=== PATIENT | male | born 1990 | race Hispanic/Latino ===

== ENCOUNTER 2017-09-11 15:14 | Emergency (ER) | payer MEDICAID ==
[2017-09-11 15:27] VITALS: BP 144/86; PULSE 96; RESP 16; TEMP 98.3; O2SAT 96
--- NOTE | 2017-09-11 15:58 | ED PDOC ---
HPI: CCC, URI, Sore Throat Time Seen by Provider: 09/11/17 15:29 Chief Complaint (Nursing): ENT Problem Chief Complaint (Provider): Left ear pain x 3 days History Per: Patient History/Exam Limitations: no limitations Onset/Duration Of Symptoms: Days Current Symptoms Are (Timing): Still Present Location Of Pain: Ear(s) (Left ) Sick Contacts (Context): None Associated Symptoms: denies: Fever, Chills, Sore Throat, Cough, Sputum, Sinus Drainage, Myalgias Ear Symptoms: Left: Ear Pain Severity: Moderate Pain Scale Rating Of: 6 Additional Complaint(s): 26 yo male with no medical problems presents with left ear pain x 3 days. PT has not take anything at home. Pt states the first day it felt itchy and uncomfortable. Denies fever.chills. Past Medical History Reviewed: Historical Data, Nursing Documentation, Vital Signs Vital Signs: Last Vital Signs Temp 98.3 F 09/11/17 15:22 Pulse 96 H 09/11/17 15:22 Resp 16 09/11/17 15:22 BP 144/86 09/11/17 15:22 Pulse Ox 96 09/11/17 15:22 - Medical History PMH: No Chronic Diseases - Family History Family History: States: Unknown Family Hx - Home Medications Home Medications: Ambulatory Orders Medication Instructions Recorded Acetaminophen/Hydrocodone Bi 1 tab PO Q4 PRN #15 tab 08/04/14 [Vicodin 300 mg-5 mg] Cyclobenzaprine HCl [Flexeril] 10 mg PO Q8 #20 tab 08/04/14 Naproxen [Naprosyn] 500 mg PO BID #20 tab 08/04/14 Benzonatate [Tessalon Perles] 100 mg PO TID #30 sgl 05/30/17 Oseltamivir [Tamiflu] 75 mg PO BID #9 cap 05/30/17 Amoxicillin 875 mg PO BID #20 tab 09/11/17 Ciprofloxacin/Dexamethasone 4 drop .ROUTE BID #1 bottle 09/11/17 [Ciprodex 0.3%-0.1% 7.5 Ml] - Allergies Allergies/Adverse Reactions: Allergies Allergy/AdvReac Type Severity Reaction Status Date / Time Sulfa (Sulfonamide Allergy Verified 05/30/17 20:25 Antibiotics) Review of Systems ROS Statement: Except As Marked, All Systems Reviewed And Found Negative Constitutional: Negative for: Fever, Chills ENT: Positive for: Ear Pain Physical Exam - Reviewed Nursing Documentation Reviewed: Yes Vital Signs Reviewed: Yes - Physical Exam Appears: Positive for: Well, Non-toxic, No Acute Distress Head Exam: Positive for: ATRAUMATIC, NORMAL INSPECTION, NORMOCEPHALIC Skin: Positive for: Normal Color, Warm, DRY Eye Exam: Positive for: Normal appearance ENT: Negative for: Normal ENT Inspection ((+) Erythema and edema of the external auditory canal on the left, (+) pinna pull and tragel tu on the left; mild erythema of the left TM), Tonsillar Exudate, Tonsillar Swelling Neck: Positive for: Normal, Painless ROM Respiratory: Negative for: Accessory Muscle Use, Respiratory Distress Back: Positive for: Normal Inspection Extremity: Positive for: Normal ROM Neurologic/Psych: Positive for: Alert, Oriented - ECG O2 Sat by Pulse Oximetry: 96 Medical Decision Making Medical Decision Making: Discussed topical antibiotics drops for 2 days and if symptoms do not improve oral antibiotics. Disposition - Clinical Impression Clinical Impression: Otitis externa - Patient ED Disposition Is Patient to be Admitted: No Counseled Patient/Family Regarding: Diagnosis, Need For Followup, Rx Given - Disposition Disposition: Routine/Home Disposition Time: 15:56 Condition: STABLE Prescriptions: Amoxicillin 875 mg PO BID #20 tab Ciprofloxacin/Dexamethasone [Ciprodex 0.3%-0.1% 7.5 Ml] 4 drop .ROUTE BID #1 bottle Instructions: Outer Ear Infection (DC)
== END 2017-09-11 16:05 | disposition home or self-care (01) ==
LOC: H.ER 15:14
DX: H60.92 Unspecified otitis externa, left ear (principal)

== ENCOUNTER 2018-06-03 17:58 | Emergency (ER) | payer OTHER ==
--- NOTE | 2018-06-03 18:24 | ED PDOC ---
Lower Extremity Pain/Injury Time Seen by Provider: 06/03/18 18:08 Chief Complaint (Nursing): Lower Extremity Problem/Injury Chief Complaint (Provider): Ingrown Toe Nail History Per: Patient History/Exam Limitations: no limitations Onset/Duration Of Symptoms: Days (x6 months) Current Symptoms Are (Timing): Still Present Additional Complaint(s): 27 year old male presents to the ED for evaluation of an ingrown toe nail to his left big toe. He states he has had it for the past six months, but just recently developed associated swelling around the nail, localized pain, and bleeding. Did not take any medications prior to arrival and denies other complaints. Denies fever/chills. Tetanus up to date PMD: none provided Past Medical History Reviewed: Historical Data, Nursing Documentation, Vital Signs Vital Signs: Last Vital Signs Temp 99.4 F 06/03/18 18:05 Pulse 98 H 06/03/18 18:05 Resp 16 06/03/18 18:05 BP 134/83 06/03/18 18:05 Pulse Ox 98 06/03/18 18:05 - Medical History PMH: No Chronic Diseases - Surgical History Surgical History: No Surg Hx - Family History Family History: States: Unknown Family Hx - Social History Current smoker - smoking cessation education provided: No Alcohol: Social - Home Medications Home Medications: Ambulatory Orders Medication Instructions Recorded Acetaminophen/Hydrocodone Bi 1 tab PO Q4 PRN #15 tab 08/04/14 [Vicodin 300 mg-5 mg] Cyclobenzaprine HCl [Flexeril] 10 mg PO Q8 #20 tab 08/04/14 Naproxen [Naprosyn] 500 mg PO BID #20 tab 08/04/14 Benzonatate [Tessalon Perles] 100 mg PO TID #30 sgl 05/30/17 Oseltamivir Cap [Tamiflu] 75 mg PO BID #9 cap 05/30/17 Ciprofloxacin/Dexamethasone 4 drop .ROUTE BID #1 bottle 09/11/17 [Ciprodex 0.3%-0.1% 7.5 Ml] RX: Amoxicillin 875 mg PO BID #20 tab 09/11/17 Cephalexin [cephalexin] 500 mg PO TID #21 cap 06/03/18 RX: Ibuprofen [Motrin Tab] 800 mg PO Q8 PRN #21 tab 06/03/18 - Allergies Allergies/Adverse Reactions: Allergies Allergy/AdvReac Type Severity Reaction Status Date / Time Sulfa (Sulfonamide Allergy RASH Verified 06/03/18 18:05 Antibiotics) Review of Systems ROS Statement: Except As Marked, All Systems Reviewed And Found Negative Musculoskeletal: Positive for: Other (ingrown nail to left foot big toe with localized pain, swelling, and bleeding) Physical Exam - Reviewed Nursing Documentation Reviewed: Yes Vital Signs Reviewed: Yes - Physical Exam Comments: GENERAL APPEARANCE: Patient is awake, alert, oriented x 3, in no acute distress. Resting comfortably SKIN: Warm, dry; (-) cyanosis. NECK: Supple, FROM LEFT FOOT: Medial and distal nail margin of big toe with erythema, fluctuance, and tenderness. Skin overgrowth to medial nail. Capillary refill intact. Remainder of foot: non tender, full ROM. No evidence of cellulitis. CARDIOVASCULAR: regular rate and rhythm RESPIRATORY: lungs cleared to auscultation bilaterally (-) rales (-)rhonchi (-) wheezing NEUROLOGIC: (+) distal sensation. - ECG O2 Sat by Pulse Oximetry: 98 (RA) Pulse Ox Interpretation: Normal Medical Decision Making Medical Decision Making: Initial Impression: infected ingrown toenail Time: 1824 Initial Plan: --Spoke to podiatry resident, Tomy Camarena, who is agreeable to evaluate patient in ED. 1949 Podiatry at bedside. Recommends treatment with Keflex PO. Keflex ordered. 2024 Procedure performed by podiatry. See consult note. Dressing and surgical shoe in place. On re-evaluation, patient reports improvement of symptoms. On exam, patient remains AAOx3, in no acute distress. Vitals stable. Lab/Diagnostic results d/w the patient in great detail. Diagnosis of infected ingrown toenail d/w the patient. Based on history, exam and diagnostic results, plan will be for outpatient follow up with podiatry clinic. Patient instructed to follow-up with pmd / referral provided / the clinic in 1- 2 days without fail. Advised to take medication as prescribed. Return to the emergency room at any time for any new or worsening symptoms. Patient states he fully agrees with and understands discharge instructions. States that he agrees with the plan and disposition. Verbalized and repeated discharge instructions and plan. I have given the patient opportunity to ask any additional questions. Scribe Attestation: Documented by Blessing Brunson, acting as a scribe for Dinah James PA-C. Provider Scribe Attestation: All medical record entries made by the Scribe were at my direction and personally dictated by me. I have reviewed the chart and agree that the record accurately reflects my personal performance of the history, physical exam, medical decision making, and the department course for this patient. I have also personally directed, reviewed, and agree with the discharge instructions and disposition. Disposition - Clinical Impression Clinical Impression: Ingrown toenail of left foot - Patient ED Disposition Is Patient to be Admitted: No Counseled Patient/Family Regarding: Studies Performed, Diagnosis, Need For Followup, Rx Given - Disposition Referrals: Podiatry Clinic [Outside] Disposition: Routine/Home Disposition Time: 20:25 Condition: STABLE Additional Instructions: The emergency medical care you received today was directed at your acute symptoms. If you were prescribed any medication, please fill it and take as directed. It may take several days for your symptoms to resolve. Return to the Emergency Department if your symptoms worsen, do not improve, or if you have any other problems. Please contact your doctor in 2 days for re-evaluation and follow up / or call one of the physicians/clinics you have been referred to that are listed on the Patient Visit Information form that is included in your discharge packet. Bring any paperwork you were given at discharge with you along with any medications you are taking to your follow up visit. Our treatment cannot replace ongoing medical care by a primary care provider (PCP) outside of the emergency department. Prescriptions: Cephalexin [cephalexin] 500 mg PO TID #21 cap RX: Ibuprofen [Motrin Tab] 800 mg PO Q8 PRN #21 tab PRN Reason: Pain, Moderate (4-7) Instructions: Ingrown Toenail, Ingrown Toenail Removal, Wound Care Forms: [employer] (Surinamese) Print Language: ZIMBABWEAN - POA Present On Arrival: None
[2018-06-03] MEDS ORDERED: Lidocaine 2% Inj (20ml) ONE ×2 (20:00→20:01)
--- NOTE | 2018-06-03 20:56 | CP.PCM.CON ---
History of Present Illness - History of Present Illness History of Present Illness: 27 y/o M patient with no PMH seen and evaluated in the ED for ingrowing infected painful left big toe nail. Patient states that his toe nail is like that since 6 month. He states that it started when he was wearing new boot for his work. He states that his toe started to got swollen. he states that it's painful 3/10 on VAS scale. He denies any other pedal complaint. He denies any recent F/N/V/C/CP or SOB PMH: None PSH: NOne Allergies: Sulpha. Social Hx: Denies smking, EtOH use or illicit drug use. Review of Systems - Review of Systems Review of Systems: As per HPI - Constitutional Constitutional: As Per HPI Past Patient History - Infectious Disease Hx of Infectious Diseases: None - Past Social History Alcohol: Social - CARDIAC Hx Cardiac Disorders: No - PSYCHIATRIC Hx Substance Use: No Meds Home Medications: Home Medication List Medication Instructions Recorded Confirmed Type Cephalexin [cephalexin] 500 mg PO TID #21 cap 06/03/18 Rx Ibuprofen [Motrin Tab] 800 mg PO Q8 PRN #21 tab 06/03/18 Rx Allergies/Adverse Reactions: Allergies Allergy/AdvReac Type Severity Reaction Status Date / Time Sulfa (Sulfonamide Allergy RASH Verified 06/03/18 18:05 Antibiotics) Physical Exam - Constitutional Appears: Well, Non-toxic, No Acute Distress - Head Exam Head Exam: ATRAUMATIC, NORMOCEPHALIC - Extremities Exam Additional comments: Left LE focused exam: VASC: DP and PT 2/4 bilaterally, CFT < 3 seconds x 10 digits, temperature gradient WNL, no edema noted NEURO: gross and protective sensation intact DERM: mild swelling noted to the medial hallux border, no opening, no drainage, no purulence, no malodor, no clinical signs of infection, incurvature, ingrowing nail noted to the hallux medial border. Granuloma noted at the medial nail fold due to contineous irritation from the ingrowing toe nail. MSK: pain with palpation to the left hallux medial border, MMT is 5/5 in all four compartments: dorsiflexion, plantarflexion, inversion and eversion. - Neurological Exam Neurological exam: Alert, Oriented x3 - Psychiatric Exam Psychiatric exam: Normal Affect, Normal Mood Results - Vital Signs Recent Vital Signs: Last Vital Signs Temp 99.4 F 06/03/18 18:05 Pulse 98 H 06/03/18 18:05 Resp 16 06/03/18 18:05 BP 134/83 06/03/18 18:05 Pulse Ox 98 06/03/18 20:29 Assessment & Plan - Assessment and Plan (Free Text) Assessment: 27 y/o M patient with no PMH seen and evaluated in the ED for ingrowing infected painful left big toe nail. Plan: Patient seen and evaluated in the ED Discussed all plan in detail with attending Dr sanches Explained to patient, he may benefit from partial nail avulsion. Benefits, risks and possible complication of the procedure discussed with the patient. Patient expressed verbal understanding. Patient agrees to do the procedure. Informed consent obtained from the patient. using 7 cc of lidocaine 2% (Lot [id number], Exp [id number]) local anesthesia block of the left hallux in a ring block fashion. After confirming the local anesthesia status and under sterile condition using trauma suture kit Partial toe nail avulsion of the lateral border of the left hallux performed. Hemostasis done by direct compression. Dressing using bacitracin ointment, DSD and Kyler bandage. Patient instructed to keep the dressing 24 hours. Patient instructed to soak his foot in epson salt every day and then dry it. Patient instructed to apply bacitracin ointment daily to the procedure site. Patient educated general and local signs of infection (F/N/V/C, redness, hotness, swelling, pus drainage) and instructed to go to the ED if she experiences any of it. Patient expressed verbal understanding. Patient to follow up in the podiatry clinic after 1 week. Thank you for consulting podiatry service
[2018-06-03 20:59] VITALS: BP 122/78; PULSE 78; RESP 18; TEMP 98
[2018-06-06 13:30] VITALS: O2SAT 98
== END 2018-06-03 20:58 | disposition home or self-care (01) ==
LOC: H.ER 17:58
DX: L60.0 Ingrowing nail (principal); Z88.2 Allergy status to sulfonamides